=== PATIENT | female | born 1990 | race Caucasian/White ===

== ENCOUNTER 2016-11-28 21:40 | Emergency (ER) | payer OTHER ==
[2016-11-28 22:01] VITALS: BMI 31.1
[2016-11-28] MEDS ORDERED: ALBUTEROL SO4 2.5/IPRATROPIUM 0.5 INH SOL 3 ML VIAL.NEB. NEB ONE (22:05)
--- NOTE | 2016-11-28 23:32 | PDOC ---
History of Present Illness - General History Source: Patient Exam Limitations: No Limitations - History of Present Illness Initial Comments: 11/28/16 23:56 The patient is a 26 year old female who is currently 22 weeks , A1, with a significant past medical history of seasonal allergies and asthma, who presents to the emergency department with shortness of breath and wheezing onset today. She states that it was hard for her to breath and she started wheezing, prompting her to come to the ED in fear of what effects it could have to the baby. She notes that she took claritin and benadryl today for her allergies with minimal relief. She states that she has had breathing treatments before and is on an albuterol pump but does not remember if she has ever been on prednisone. The patient denies chest pain, headache and dizziness. Denies fever, chills, nausea, vomit, diarrhea and constipation. She denies abdominal pain or vaginal discharge/bleeding. 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 <Gilberto Villar - Last Filed: 11/29/16 00:11> <Pritesh Carbajal - Last Filed: 11/29/16 01:20> - General Chief Complaint: Shortness of Breath Stated Complaint: 22 WEEK, ALLERGIES, BABY NOT MOVING Time Seen by Provider: 11/28/16 22:39 Past History <Gilberto Villar - Last Filed: 11/29/16 00:11> - Past Medical History Asthma: Yes - Surgical History Abdominal Surgery: Yes - Psycho/Social/Smoking Cessation Hx Anxiety: No Suicidal Ideation: No Smoking Status: No Smoking History: Never smoked Number of Cigarettes Smoked Daily: 0 Information on smoking cessation initiated: No Hx Alcohol Use: No Drug/Substance Use Hx: No Substance Use Type: None <Pritesh Carbajal - Last Filed: 11/29/16 01:20> - Past Medical History Allergies/Adverse Reactions: Allergies Allergy/AdvReac Type Severity Reaction Status Date / Time No Known Allergies Allergy Verified 11/28/16 21:57 Home Medications: Ambulatory Orders Albuterol Sulfate Inhaler - [Ventolin HFA Inhaler -] 1 - 2 inh PO Q4H #1 inhaler 11/29/16 Review of Systems - Review of Systems Able to Perform ROS?: Yes Comments:: 11/28/16 23:56 CONSTITUTIONAL: No fever, no chills, no fatigue EYES: No visual changes ENT: No ear pain, no sore throat CARDIOVASCULAR: No chest pain, no palpitations RESPIRATORY: (+) Shortness of breath and wheezing. No cough GI: No abdominal pain, no nausea, no vomiting, no constipation, no diarrhea GENITOURINARY: No dysuria, no frequency, no hematuria MUSKULOSKELETAL: No backpain, no joint pain, no myalgias SKIN: No rash NEURO: No headache <Gilberto Villar - Last Filed: 11/29/16 00:11> *Physical Exam - Vital Signs Last Vital Signs Temp Pulse Resp BP Pulse Ox 97.6 F 87 20 106/53 97 11/28/16 21:57 11/28/16 21:57 11/28/16 21:57 11/28/16 21:57 11/28/16 21:57 - Physical Exam Comments: 11/28/16 23:56 CONSTITUTIONAL: Well-appearing; well-nourished; in no apparent distress HEAD: Normocephalic; atraumatic EYES: PERRL; EOM intact ENMT: External appears normal; normal oropharynx NECK: Supple; non-tender; no cervical lymphadenopathy CARD: Normal S1, S2; no murmurs, rubs, or gallops RESP: Normal chest excursion with respiration; breath sounds clear and equal bilaterally; no wheezes, rhonchi, or rales ABD: +Gravid uterus with a fundus palpable at the periumbilical. Soft, non- tender; no palpable organomegaly, no palpable hernias EXT: Normal ROM in all four extremities; non-tender to palpation; distal pulses intact SKIN: Warm, dry, no rash NEURO: No focal neurological deficiencies. <Gilberto Villar - Last Filed: 11/29/16 00:11> - Vital Signs Last Vital Signs Temp Pulse Resp BP Pulse Ox 97.6 F 87 20 106/53 97 11/28/16 21:57 11/28/16 21:57 11/28/16 21:57 11/28/16 21:57 11/28/16 21:57 <Pritesh Carbajal - Last Filed: 11/29/16 01:20> ED Treatment Course - Medications Given in the ED: ED Medications Discontinued Medications Generic Name Dose Route Start Last Admin Trade Name Freq PRN Reason Stop Dose Admin Albuterol/Ipratropium 1 amp 11/28/16 22:05 11/28/16 22:16 Duoneb - NEB 11/28/16 22:06 1 amp ONCE ONE Administration <Gilberto Villar - Last Filed: 11/29/16 00:11> - Medications Given in the ED: ED Medications Discontinued Medications Generic Name Dose Route Start Last Admin Trade Name Freq PRN Reason Stop Dose Admin Albuterol/Ipratropium 1 amp 11/28/16 22:05 11/28/16 22:16 Duoneb - NEB 11/28/16 22:06 1 amp ONCE ONE Administration <Pritesh Carbajal - Last Filed: 11/29/16 01:20> Medical Decision Making - Medical Decision Making 11/29/16 00:26 Patient is a 26-year-old female, 3 para 1, at 22 weeks gestation, who presented with signs and symptoms of acute airway disease likely precipitated by seasonal ALLERGIES. Patient had received an albuterol nebulizer treatment with complete resolution of the expiratory wheezing. Limited abdominal ultrasound showed a viable IUP at 22 weeks and 3 days with FH of 159. Patient cleared for L&D evaluation. 11/29/16 01:18 Patient evaluated and cleared by labor and delivery. Will discharge with albuterol MDI with outpatient follow-up as scheduled. <Pritesh Carbajal - Last Filed: 11/29/16 01:20> *DC/Admit/Observation/Transfer - Attestations Scribe Attestion: 11/28/16 23:57 Documentation prepared by Gilberto Villar, acting as director medical surgical for Pritesh Cabrajal MD <Gilberto Villar - Last Filed: 11/29/16 00:11> - Attestations Physician Attestion: 11/29/16 00:25 The documentation was prepared by the scribe under my direct supervision. I have reviewed the documentation which correctly represents the findings, medical decision-making and critical action taken by me. <Pritesh Carbajal - Last Filed: 11/29/16 01:20> Diagnosis at time of Disposition: Reactive airway disease Qualifiers: Asthma severity: unspecified severity Asthma complication type: uncomplicated Qualified Code(s): J45.909 - Unspecified asthma, uncomplicated Qualifiers: Weeks of gestation: 22 weeks Qualified Code(s): Z3A.22 - 22 weeks gestation of - Discharge Dispostion Disposition: HOME Condition at time of disposition: Stable - Prescriptions Prescriptions: Albuterol Sulfate Inhaler - [Ventolin HFA Inhaler -] 1 - 2 inh PO Q4H #1 inhaler - Referrals Referrals: Jordin Anthony MD [Primary Care Provider] - - Patient Instructions Printed Discharge Instructions: DI for Reactive Airway Disease-Adult
[2016-11-29 00:10] LABS: URINE APPEARANCE CLEAR; URINE BILIRUBIN NEGATIVE (NEGATIVE); URINE BLOOD NEGATIVE (NEGATIVE); URINE COLOR STRAW; URINE GLUCOSE (UA) 1+ (NEGATIVE); URINE KETONE NEGATIVE (NEGATIVE); URINE LEUK ESTERASE NEGATIVE (NEGATIVE); URINE NITRITE NEGATIVE (NEGATIVE); URINE PROTEIN NEGATIVE (NEGATIVE); URINE UROBILINOGEN NEGATIVE E.U./dl (0.2-1.0)
[2016-11-29 00:45] VITALS: BP 107/64; PULSE 75; TEMP 97.9
== END 2016-11-29 01:24 | disposition home or self-care (01) ==
LOC: JER 21:40
PROC: 3E0F7GC Introduction of Other Therapeutic Substance into Respiratory Tract, Via Natural or Artificial Opening (ICD-10-PCS; principal; 2016-11-28)
DX: O99.89 Other specified diseases and conditions complicating pregnancy, childbirth and the puerperium (principal); J45.909 Unspecified asthma, uncomplicated; Z3A.22 22 weeks gestation of pregnancy
CPT/HCPCS: 76816-TC; 81003; 87086; 94640; 99283-25